=== PATIENT | male | born 1985 | race Caucasian/White ===

== ENCOUNTER 2023-06-05 00:55 | Emergency (ER) | payer OTHER, SELFPAY ==
[2023-06-05 01:26] VITALS: BP 117/79
[2023-06-05 01:43] LABS: % Basophils 0.7 % (0-2); % Eosinophils 4.3 % (0-6); % Immature Granulocytes 0.2 % (0-0.5); % Lymphocytes 32.7 % (20.5-51.1); % Monocytes 9.6 % (1.7-9.3); % Neutrophils 52.5 % (42.2-75.2); Absolute Eosinophils 0.2 10^3/uL (0-0.7); Absolute Lymphocytes 1.4 10^3/uL (1.2-3.4); Absolute Monocytes 0.4 10^3/uL (0.1-0.6); Absolute Neutrophils 2.3 10^3/uL (1.4-6.5); Hematocrit 40.8 % (39.0-52.0); Hemoglobin 14.7 g/dL (13.0-18.0); Mean Corpuscular Hgb 29.6 pg (27.0-31.0); Mean Corpuscular Volume 82.1 fL (80.0-94.0); Mean Platelet Volume 11.2 fL (7.4-10.4); Nucleated Red Blood Cells % 0 % (-); Platelet Count 124 10^3/uL (130-400); Red Blood Cell Count 4.97 10^6/uL (4.70-6.10); Red Cell Dist. Width 11.6 % (11.5-14.5); White Blood Cell Count 4.4 10^3/uL (4.8-10.8)
[2023-06-05 02:02] LABS: ALT (SGPT) 56 U/L (0-50); AST (SGOT) 34 U/L (17-59); Albumin 4.2 g/dl (3.5-5.0); Alkaline Phosphatase 68 U/L (38-126); Blood Urea Nitrogen 14 mg/dl (9-20); Calcium 8.9 mg/dl (8.4-10.2); Carbon Dioxide 27 mmol/L (22-30); Chloride 105 mmol/L (98-107); Glucose 107 mg/dl (70-99); Potassium 4.2 mmol/L (3.5-5.1); Sodium 137 mmol/L (135-145); Total Bilirubin 0.8 mg/dl (0.2-1.3); Total Protein 6.8 g/dl (6.3-8.2); eGFR > 60.00
--- NOTE | 2023-06-05 06:28 | ED.GENMED ---
History of Present Illness
General
Chief Complaint: Musculo-Skeletal Complaint
Source: patient
Exam Limitations: none
Time Seen by Provider: 06/05/23 06:18
Travel History
Have you had any contact with someone who has COVID-19?: No
Do you have any symptoms of coronavirus? Fever > 100 degrees, chills, cough, shortness of breath, sore throat, loss of taste or smell, muscle aches, or headache?: No
History of Present Illness
History of Present Illness:
Patient presents to our ER primarily with bilateral neck pain. His daughter had parvovirus infection he felt he had a GI bug almost a week ago with vomiting for 1 day followed by some chills and headache. He did have a rash. [place] to be
parvovirus. Currently all of the symptoms have resolved but patient has bilateral upper posterior neck pain. It is positional in nature. Worse with twisting and turning. He has no photophobia no nausea no fever no chills no rash no neurologic
symptoms or other complaints.
Past History
Past History
ED Past Medical History: None
ED Past Surgical History: Orthopedic
Social History
Tobacco: Non-smoker
Alcohol: None
Review of Systems
Review of Systems
All Other Systems: Not applicable
Constitutional: Denies fever or chills
Respiratory: Reports no symptoms
ABD/GI: Reports no symptoms
Phy Exam
Physical Exam
Physical Exam:
GENERAL: Alert and oriented in no apparent distress
EYE: Orbits normal. Extraocular muscles intact.
NECK: Supple, no thyroid palpable. Bilateral very minimal tenderness at the insertion point of the posterior scalp sternocleidomastoid muscles.
ENT: Pharynx without erythema
CARDIAC: Regular rate and rhythm without any obvious murmurs.
LUNGS: Clear breath sounds,normal
ABDOMEN: Soft, without focal tenderness or distention
NEUROLOGICAL: Alert and oriented , grossly non-focal
SKIN: Warm and dry, no rash or lesion, no discoloration, skin intact.
MUSCULOSKELETAL: No edema,no deformity.Good color
PSYCH: Normal and appropriate interaction.
Course
Orders/Labs/Results
Orders:
Orders
06/05/23 01:36
Complete Blood Count/With Diff Urgent
Comprehensive Metabolic Panel Urgent
Blood Culture Urgent
DENICE Source: Blood/Venous
Specimen Description:
06/05/23 07:03
CT Cervical Spine W/o Iv Contr Urgent
Comment:
Reason For Exam: Posterior upper back/neck pain
CT Head W/o Iv Contrast Urgent
Comment:
Reason For Exam: Posterior upper neck/head pain
Abnormal Lab Results
06/05/23
01:36
WBC 4.4 L 10^3/uL
(4.8-10.8)
Plt Count 124 L 10^3/uL
(130-400)
MPV 11.2 H fL
(7.4-10.4)
Monocytes % 9.6 H %
(1.7-9.3)
Glucose 107 H mg/dl
(70-99)
ALT 56 H U/L
(0-50)
06/05/23 01:36
06/05/23 01:36
Vital Signs
Initial and Last Documented VS:
Initial Vital Signs
Temp Pulse Resp BP Pulse Ox
98.2 F 79 16 117/79 97
06/05/23 01:26 06/05/23 01:26 06/05/23 01:26 06/05/23 01:26 06/05/23 01:26
Last Documented Vital Signs
Temp Pulse Resp BP Pulse Ox
98.6 F 76 16 136/71 98
06/05/23 08:06 06/05/23 08:06 06/05/23 08:06 06/05/23 08:06 06/05/23 08:06
MDM/Problems Addressed
Differential Diagnosis Includes:
Very very low suspicion for bacterial meningitis. Clinically nontoxic and in no distress. Supple neck. At this time nothing to support a lumbar puncture. Labs are stable. Minimal low white count and minimal low platelets. Also this would
support a recent viral infection. We will get a CT of the with the posterior neck pain. If all stable discharged to follow-up
*Radiology
Radiology exam reviewed: radiology read reviewed (Negative head CT. Negative cervical spine)
*Critical Care Note
Total Time (30-74mins, 75-104mins- exclusive of procedures): Not Applicable
Update Note
Update Note:
Patient very nontoxic and stable. No clinical findings to support meningitis. Likely postviral. Will low platelets. Stable for discharge to follow-up
ED Attending Note
-
Portions of this chart may have been created with voice recognition software.� Occasional wrong word or��sound alike� substitutions may have occurred due to the inherent limitations of voice recognition software.
Discharge Plan
Departure
Patient Disposition: Home (Routine Discharge)
Date of Disposition: 06/05/23
Time of Disposition: 07:47
Patient with high blood pressure during this ER visit?: No
Discharge Problem:
Posterior neck pain, Minimal thrombocytopenia
Instructions: Neck Pain ED
Prescriptions:
No Action
Epidiolex 1 UNIT solution
1 unit PO BID
Referrals:
Delonte Junior MD [Family Provider] - Follow up in 2-3 days
Activity Restrictions/Additional Instructions:
As we discussed, your platelet count is minimally low. For completeness it would be a good idea to get this repeated in 1 to 2 weeks
Return sooner with increased neck pain fever photophobia vomiting any focal neurologic symptoms unusual rash etc.
Interventions
Interventions:
*Risk Screen - Suicide Last Done: 06/05/23 01:26
*General Assessment Last Done: 06/05/23 06:37
*Neglect/Abuse Screening Last Done: 06/05/23 01:26
ED- Fall Risk Assessment Last Done: 06/05/23 06:37
*ED COVID-19 Vaccine History Last Done: 06/05/23 01:26
*Nursing Disposition Last Done: 06/05/23 08:06
ED-Musculoskeletal Assessment Last Done: 06/05/23 06:35
Discharge Date and Time
Discharge Date/Time: 06/05/23 08:07
Print Language: SAMI
[2023-06-05 08:06] VITALS: BP 136/71
== END 2023-06-05 08:07 | disposition home or self-care (01) ==
LOC: EMR 00:55
PROVIDERS: Emergency Medicine; EMERGENCY PHYSICIAN Emergency Medicine; FAMILY PHYSICIAN Family Medicine
DX: M54.2 Cervicalgia (principal); D69.6 Thrombocytopenia, unspecified
CPT/HCPCS: 99284; 70450; 72125; 80053; 85025; 87040

== ENCOUNTER 2024-03-16 06:15 | Day surgery (SDC) | payer OTHER, SELFPAY | END 2024-03-16 15:09 | disposition home or self-care (01) | LOC: GI 06:15 | PROVIDERS: ATTENDING PHYSICIAN Internal Medicine Gastroenterology | DX: Z12.11 Encounter for screening for malignant neoplasm of colon (principal); D12.0 Benign neoplasm of cecum; K64.8 Other hemorrhoids; Z86.0100 Personal history of colon polyps, unspecified | CPT/HCPCS: 45380; 88305 ==

== ENCOUNTER → 2024-04-14 07:40 | Outpatient (REF) | payer OTHER, SELFPAY | LOC: RAD 07:40 | PROVIDERS: ATTENDING PHYSICIAN Physician Assistant; FAMILY PHYSICIAN Family Medicine | DX: R10.32 Left lower quadrant pain (principal); N50.812 Left testicular pain | CPT/HCPCS: 74177; Q9967 ==

== ENCOUNTER → 2024-05-11 10:09 | Outpatient (REF) | payer OTHER, SELFPAY | LOC: RAD 10:09 | PROVIDERS: ATTENDING PHYSICIAN Physician Assistant; FAMILY PHYSICIAN Family Medicine | DX: N50.82 Scrotal pain (principal) | CPT/HCPCS: 76870; 93976 ==

== ENCOUNTER 2024-10-10 23:51 | Emergency (ER) | payer SELFPAY ==
[2024-10-11 00:04] VITALS: BP 116/80
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
== END 2024-10-11 02:15 | disposition home or self-care (01) ==
LOC: EMR 23:51
PROVIDERS: EMERGENCY PHYSICIAN Student in an Organized Health Care Education/Training Program; FAMILY PHYSICIAN Family Medicine
DX: S01.01XA Laceration without foreign body of scalp, initial encounter (principal); W20.8XXA Other cause of strike by thrown, projected or falling object, initial encounter; S22.32XA Fracture of one rib, left side, initial encounter for closed fracture; V89.2XXA Person injured in unspecified motor-vehicle accident, traffic, initial encounter; Y92.410 Unspecified street and highway as the place of occurrence of the external cause; R03.0 Elevated blood-pressure reading, without diagnosis of hypertension
CPT/HCPCS: 99284; 12001; 71250

== ENCOUNTER 2024-10-16 23:01 | Emergency (ER) | payer OTHER, SELFPAY ==
[2024-10-16 23:12] VITALS: BP 130/80
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
[2024-10-17 01:26] VITALS: BP 124/80
== END 2024-10-17 01:26 | disposition home or self-care (01) ==
LOC: EMR 23:01
PROVIDERS: EMERGENCY PHYSICIAN Emergency Medicine; FAMILY PHYSICIAN Family Medicine
DX: M62.838 Other muscle spasm (principal); F41.9 Anxiety disorder, unspecified
CPT/HCPCS: 99284; 71046; 93005

== ENCOUNTER → 2024-10-29 12:56 | Outpatient (REF) | payer OTHER, SELFPAY ==
[2024-10-29 14:22] LABS: Hematocrit 44.6 % (39.0-52.0); Hemoglobin 15.2 g/dL (13.0-18.0); Mean Corp Hgb Conc. 34.1 g/dL (33.0-37.0); Mean Corpuscular Volume 86.1 fL (80.0-94.0); Nucleated Red Blood Cells % 0 % (-); Platelet Count 159 10^3/uL (130-400); Red Cell Dist. Width 12.2 % (11.5-14.5)
[2024-10-29 14:46] LABS: ALT (SGPT) 77 U/L (0-50); AST (SGOT) 36 U/L (17-59); Albumin 4.6 g/dl (3.5-5.0); Alkaline Phosphatase 140 U/L (38-126); Blood Urea Nitrogen 19 mg/dl (9-20); Calcium 9.8 mg/dl (8.4-10.2); Carbon Dioxide 31 mmol/L (22-30); Chloride 102 mmol/L (98-107); Glucose 95 mg/dl (70-99); Potassium 4.9 mmol/L (3.5-5.1); Sodium 139 mmol/L (135-145); Total Protein 7.3 g/dl (6.3-8.2); eGFR > 60.00
== END ==
LOC: RAD 12:56
PROVIDERS: ATTENDING PHYSICIAN Nurse Practitioner Family; FAMILY PHYSICIAN Family Medicine
DX: R10.11 Right upper quadrant pain (principal); M79.89 Other specified soft tissue disorders; M25.561 Pain in right knee; R22.41 Localized swelling, mass and lump, right lower limb; V89.2XXD Person injured in unspecified motor-vehicle accident, traffic, subsequent encounter; R74.8 Abnormal levels of other serum enzymes
CPT/HCPCS: 36415; 71101; 73564; 76700; 80053; 85025; 93971

== ENCOUNTER 2024-11-14 16:11 | Emergency (ER) | payer OTHER, SELFPAY ==
[2024-11-14 16:12] VITALS: BP 133/88
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
[2024-11-14 17:35] VITALS: BMI 32.2
[2024-11-14] MEDS: TYLENOL 1000 MG PO (17:37)
[2024-11-14] MEDS: TORADOL 30 MG IV (17:38)
[2024-11-14 17:51] LABS: D-Dimer 1.14 ug/mlFEU (0.00-0.50)
[2024-11-14 17:54] LABS: Blood Urea Nitrogen 18 mg/dl (9-20); Calcium 8.9 mg/dl (8.4-10.2); Carbon Dioxide 24 mmol/L (22-30); Chloride 102 mmol/L (98-107); Estimated Creatinine Clearance > 125 ml/min; Glucose 125 mg/dl (70-99); Potassium 4.4 mmol/L (3.5-5.1); Sodium 132 mmol/L (135-145); eGFR > 60.00
[2024-11-14 20:00] VITALS: BP 134/84
[2024-11-14 21:29] VITALS: BP 131/79
== END 2024-11-14 21:39 | disposition home or self-care (01) ==
LOC: EMR 16:11
PROVIDERS: EMERGENCY PHYSICIAN Emergency Medicine; FAMILY PHYSICIAN Family Medicine
DX: S22.43XA Multiple fractures of ribs, bilateral, initial encounter for closed fracture (principal); M62.838 Other muscle spasm; R03.0 Elevated blood-pressure reading, without diagnosis of hypertension; V89.2XXA Person injured in unspecified motor-vehicle accident, traffic, initial encounter
CPT/HCPCS: 99284; 96374; 71275; 80048; 85379; Q9967

== ENCOUNTER → 2024-11-17 17:08 | Outpatient (REF) | payer OTHER, SELFPAY | LOC: PAVMRI 17:08 | PROVIDERS: ATTENDING PHYSICIAN Nurse Practitioner Family | DX: M25.469 Effusion, unspecified knee (principal) | CPT/HCPCS: 73721 ==

== ENCOUNTER 2024-12-16 12:53 | Outpatient (RCR) | payer OTHER, SELFPAY | END 2024-12-16 23:59 | disposition home or self-care (01) | LOC: RPT 12:53 | PROVIDERS: ATTENDING PHYSICIAN Physician Assistant Surgical; FAMILY PHYSICIAN Family Medicine | DX: S62.102D Fracture of unspecified carpal bone, left wrist, subsequent encounter for fracture with routine healing (principal); S83.521D Sprain of posterior cruciate ligament of right knee, subsequent encounter; Z73.6 Limitation of activities due to disability; M62.81 Muscle weakness (generalized); M25.561 Pain in right knee; R26.89 Other abnormalities of gait and mobility; V49.9XXD Car occupant (driver) (passenger) injured in unspecified traffic accident, subsequent encounter | CPT/HCPCS: 97022; 97110; 97140; 97162; 97166; 97530; 97535 ==

== ENCOUNTER 2025-01-11 06:55 | Outpatient (RCR) | payer OTHER, SELFPAY | END 2025-01-11 23:59 | disposition home or self-care (01) | LOC: RPT 06:55 | PROVIDERS: ATTENDING PHYSICIAN Physician Assistant Surgical; FAMILY PHYSICIAN Family Medicine | DX: S83.521D Sprain of posterior cruciate ligament of right knee, subsequent encounter (principal); S62.102D Fracture of unspecified carpal bone, left wrist, subsequent encounter for fracture with routine healing; Z73.6 Limitation of activities due to disability; M62.81 Muscle weakness (generalized); M25.561 Pain in right knee; R26.89 Other abnormalities of gait and mobility; V49.9XXD Car occupant (driver) (passenger) injured in unspecified traffic accident, subsequent encounter | CPT/HCPCS: 97010; 97018; 97022; 97110; 97112; 97140; 97530 ==

== ENCOUNTER → 2025-01-17 07:38 | Outpatient (REF) | payer OTHER, SELFPAY | LOC: RAD 07:38 | PROVIDERS: ATTENDING PHYSICIAN Nurse Practitioner Family | DX: R91.1 Solitary pulmonary nodule (principal) | CPT/HCPCS: 71260; Q9967 ==

== ENCOUNTER 2025-01-31 08:26 | Outpatient (RCR) | payer OTHER, SELFPAY | END 2025-01-31 23:59 | disposition home or self-care (01) | LOC: RPT 08:26 | PROVIDERS: ATTENDING PHYSICIAN Physician Assistant Surgical; FAMILY PHYSICIAN Family Medicine | DX: S83.521D Sprain of posterior cruciate ligament of right knee, subsequent encounter (principal); S62.102D Fracture of unspecified carpal bone, left wrist, subsequent encounter for fracture with routine healing; Z73.6 Limitation of activities due to disability; M62.81 Muscle weakness (generalized); M25.561 Pain in right knee; R26.89 Other abnormalities of gait and mobility; V49.9XXD Car occupant (driver) (passenger) injured in unspecified traffic accident, subsequent encounter | CPT/HCPCS: 97018; 97110; 97140 ==